=== PATIENT | female | born 1960 | race Native Hawaiian/Other Pacific Islander ===

== ENCOUNTER 2017-05-21 06:33 | Outpatient (CLI) | payer BC ==
[2017-05-21 08:08] LABS: PLATELET COUNT 292 K/uL (152-353)
[2017-05-21 08:38] LABS: POTASSIUM 3.9 mmol/L (3.6-5.2)
== END 2017-05-21 19:03 | disposition home or self-care (01) ==
LOC: LABW 06:33
PROVIDERS: Nurse Practitioner
DX: E03.8 Other specified hypothyroidism (principal); E55.9 Vitamin D deficiency, unspecified; R53.83 Other fatigue; E78.2 Mixed hyperlipidemia
CPT/HCPCS: 36415; 80053; 80061; 82652; 84443; 85027

== ENCOUNTER 2019-04-28 06:23 | Outpatient (CLI) | payer BC ==
[2019-04-28 07:52] LABS: PLATELET COUNT 292 K/uL (152-353)
[2019-04-28 08:55] LABS: POTASSIUM 3.9 mmol/L (3.6-5.2)
== END 2019-04-28 21:36 | disposition home or self-care (01) ==
LOC: LABW 06:23
PROVIDERS: Nurse Practitioner
DX: E78.2 Mixed hyperlipidemia (principal); E03.9 Hypothyroidism, unspecified; L65.9 Nonscarring hair loss, unspecified
CPT/HCPCS: 36415; 80053; 80061; 82306; 82626; 82728; 83540; 83550; 84270; 84402; 84403; 84439; 84443; 84479; 85027; 86038; 86376